=== PATIENT | female | born 1975 | race Asian ===

== ENCOUNTER 2022-02-13 11:14 | Emergency (ER) | payer BC, OTHER ==
[2022-02-13 11:33] VITALS: BP 171/82; PULSE 75; RESP 19; TEMP 98.1; BMI 19.5
[2022-02-13] MEDS ORDERED: IBUPROFEN 600 MG TABLET (FP) PO ONE ×2 (12:08→12:09)
[2022-02-13] MEDS ORDERED: DIPHTH,PERTUSS(ACELL),TET 0.5 ML DISP.SYRIN IM ONE ×2 (12:08→12:09)
[2022-02-13] MEDS ORDERED: CEFAZOLIN 1 GM in DEXTROSE 5%-WATER - 50 ML IVPB ONE (12:11)
[2022-02-13] MEDS ORDERED: ceFAZolin SODIUM 1 GM VIAL ONE (12:23)
== END 2022-02-13 13:48 | disposition home or self-care (01) ==
LOC: JERFT 11:14
PROC: 0HQFXZZ Repair Right Hand Skin, External Approach (ICD-10-PCS; principal; 2022-02-13)
PROC: 3E03329 Introduction of Other Anti-infective into Peripheral Vein, Percutaneous Approach (ICD-10-PCS; 2022-02-13)
PROC: 3E0234Z Introduction of Serum, Toxoid and Vaccine into Muscle, Percutaneous Approach (ICD-10-PCS; 2022-02-13)
DX: S61.011A Laceration without foreign body of right thumb without damage to nail, initial encounter (principal); W31.2XXA Contact with powered woodworking and forming machines, initial encounter
CPT/HCPCS: 73130-TC-RT-FY; 90715; 99284-25